=== PATIENT | male | born 1975 | race Hispanic/Latino ===

== ENCOUNTER 2018-03-30 11:05 | Emergency (ER) | payer OTHER, SELFPAY ==
[2018-03-30] MEDS ORDERED: Lidocaine 1% 20 ML MDV ONE (11:33)
[2018-03-30] MEDS ORDERED: Bacitracin Zinc 1 Packet ONE (11:53)
== END 2018-03-30 12:01 | disposition home or self-care (01) ==
LOC: NAV ERS 11:05
DX: S61.412A Laceration without foreign body of left hand, initial encounter (principal); B20 Human immunodeficiency virus [HIV] disease; F32.9 Major depressive disorder, single episode, unspecified; F17.210 Nicotine dependence, cigarettes, uncomplicated; Z79.899 Other long term (current) drug therapy; W26.0XXA Contact with knife, initial encounter
CPT/HCPCS: 12001; J2001